=== PATIENT | male | born 1960 | race Caucasian/White ===

== ENCOUNTER → 2016-11-07 | Outpatient (CLI) | payer BC ==
[2016-11-07 17:31] LABS: CHLORIDE,CL 105 mmol/L (98-110); SODIUM,NA 140 mmol/L (136-146)
--- NOTE | 2016-11-08 10:12 | CR ---
EXAM DATE: 11/07/16 PATIENT'S AGE: 56 Patient: EMILY MARSH Facility: [place], [place] Site . Site : [id number] Study: XRay Chest [id number]/11/2017 5:06:30 PM Ordering Physician: Sophie Lowe Final Report: INDICATION: FATIGUE TECHNIQUE: Chest 2 views. COMPARISON: None. FINDINGS: Cardiovascular and mediastinum: Heart size and vasculature are normal in caliber and appearance. Mediastinum is within normal limits. Lungs and pleural spaces: Lungs are clear. No sign of infiltrate or mass. No sign of pleural effusion. No pneumothorax. Bones and soft tissues: No significant findings. IMPRESSION: Unremarkable chest. Dictated by: Armando Sheriff MD @ 11/07/2016 17:23:45 (Electronic Signature) Report Signed by Proxy and Original Signed Document filed in the Medical Record. MTDD
== END ==
LOC: MW.CHIM 16:41
PROVIDERS: ATTEND Internal Medicine
DX: R53.83 Other fatigue (principal); R07.89 Other chest pain; E66.9 Obesity, unspecified
CPT/HCPCS: 36415; 71020; 80053; 80061; 83036; 84439; 84443; 85025; G0103